=== PATIENT | female | born 1960 | race Caucasian/White ===

== ENCOUNTER 2019-11-26 12:25 | Observation (INO) | payer OTHER ==
[~2019-11-26] VITALS: Ht 162.6 cm; Wt 71.4 kg
[~2019-11-26 12:25] MED LIST: ADVAIR DISK1 IN; AMOXICILLIN500 MG PO; ATORVASTATIN CA10 MG PO; BACTRIM DS1 TAB PO; CIPROFLOXACN500 MG PO; CITALOPRAM20 MG PO; FIORICET PO; LISINOPRIL20 MG PO; LISINOPRIL40 MG OR; LOPRESSOR 550 MG/TAB PO; NAPROSYN500 MG OR; PROAIR HFA IN; SUMATRIPTAN25 MG PO; ULTRAM50 M1 PO
--- NOTE | 2019-11-26 12:25 | NUR ---
PT TO ROOM 10 VIA WC. ABLE TO STAND AND TRANSFER SELF TO STRETCHER WITHOUT ASSIST.
[2019-11-26 12:55] LABS: HEMATOCRIT 48.3 % (37.0-47.0); HEMOGLOBIN 15.4 g/dl (12.0-16.0); IMMATURE GRANULOCYTES 0.6 % (0.0-5.0); MEAN CORPUSCULAR HGB CONC 31.9 g/L CALC (32.0-36.0); NEUT# 7.34 thou/uL (2.00-7.15); RED BLOOD COUNT 5.14 mill/uL (4.20-5.60); RED CELL DISTRI WIDTH 12.9 % (11.5-15.5)
[2019-11-26] MEDS ORDERED: ATORVASTATIN CA10 MG PO (13:05)
[2019-11-26 13:17] LABS: ALBUMIN 4.2 g/dL (3.2-5.0); ALKALINE PHOSPHATASE 122 u/l (38-126); BUN 17 mg/dL (7-17); BUN/CREATININE RATIO 15 (12-20 (CALC)); CARBON DIOXIDE 24 mmol/l (22-30); CHLORIDE 103 mmol/l (95-108); CREATININE 1.1 mg/dL (0.5-1.0); GFR 51 ML/MIN (>=60 (CALC)); GFR FOR AFR.AMER. > 60 ML/MIN (>=60 (CALC)); SGOT/AST 39 u/l (14-36); TOTAL PROTEIN 7.5 g/dL (6.3-8.2)
[2019-11-26 13:19] LABS: ANION GAP 14 (6-22 (CALC)); BILIRUBIN, TOTAL 1.1 mg/dL (0.0-1.4); SODIUM 137 mmol/l (137-146)
--- NOTE | 2019-11-26 14:02 | NUR ---
PREVIOUS FAILED ATTEMPT AT URINE COLLECTION. FLUID BOLUS COMPLETE. PT DENIES URGE TO URINATE AT THIS TIME.
[2019-11-26 15:42] LABS: URINE BILIRUBIN - DIPSTICK NEGATIVE (NEGATIVE); URINE BLOOD DIPSTICK TRACE-LYSED (NEGATIVE); URINE COLOR YELLOW; URINE GLUCOSE - DIPSTICK NEGATIVE (NEGATIVE); URINE KETONE NEGATIVE (NEGATIVE); URINE LEUK ESTERASE NEGATIVE (NEGATIVE); URINE NITRITE - DIPSTICK NEGATIVE (Negative); URINE PROTEIN - DIPSTICK NEGATIVE (NEG-TRACE); URINE UROBILINOGEN - DIPSTICK 0.2 E.U./dL (0.2)
--- NOTE | 2019-11-26 16:52 | NUR ---
FLOOR NURSE NOT AVAILABLE FOR REPORT AT THIS TIME. NURSE WILL CALL THE ER. ER KASEYE NURSEPARVEEN, NOTIFIED.
--- NOTE | 2019-11-26 17:01 | NUR ---
[id number] IN USE
--- NOTE | 2019-11-26 17:30 | NUR ---
Admission Note Report Given to: CRISTINA BRYAN Transported by: X Wheelchair Stretcher Transported with: X Nurse Transporter X Patent IV X O2 X Assessment Expert Location: ICU X [facility]
[2019-11-26 17:40] VITALS: BP 118/73
--- NOTE | 2019-11-26 18:18 | NUR ---
PT ARRIVES TO ROOM 290 ALERT AND ORIENTED X 3. PT HAS CLEAR LUNGS, USING 2 LPM NC. PT DOES BECOME SOB WITH MININAL ACTIVITY. SKIN INTACT. PT ORIENTED TO CALL BOND, BED CONTROLS, STATES THAT SHE WILL CALL IF SHE NEEDS SOMETHING.
--- NOTE | 2019-11-26 19:05 | NUR ---
REPORT RECEIVED FROM CRISTINA BRYAN. PT RESTING IN BED. SAFETY PRECAUTIONS IN PLACE. [facility]
[2019-11-26 20:20] VITALS: BP 113/78
--- NOTE | 2019-11-26 21:07 | NUR ---
PT RESTING IN BED ALERT AND ORIENTED. RESPIRATIONS EVEN AND UNLABORED ON O2 @ 2L VIA NC. LUNGS SOUND DIMINISHED. PEDAL PULSES STRONG. PT STATES "I FEEL LIKE I MIGHT HAVE A HEADACHE COMING ON AND FEELS LIKE THERE IS PRESSURE IN MY RIBS UNDER MY BREAST LIKE INFLAMMATION." MD TO BE NOTIFIED ORDERS TO BE OBTAINED. PT PROVIDED WITH CRANBERRY JUICE AND SPRITE PER REQUEST. CALL BOND WITHIN REACH. WILL CONTINUE TO MONITOR.
--- NOTE | 2019-11-26 23:30 | NUR ---
PT RESTING IN BED, RESPIRATIONS EVEN AND UNLABORED ON O2 @ 2L VIA NC. PT ASKING FOR SOMETHING FOR SLEEP, PT MEDICATED PER EMAR ORDERS. SAFETY PRECAUTIONS IN PLACE. WILL CONTINUE TO [facility].
[2019-11-27] VITALS: BP 122/74
--- NOTE | 2019-11-27 04:28 | NUR ---
PT RESTING IN BED. RESPIRATIONS EVEN AND UNLABORED ON O2 @ 2L VIA NC. SAFETY PRECAUTIONS IN PLACE. WILL CONTINUE TO MONITOR.
[2019-11-27 04:30] VITALS: BP 119/76
[2019-11-27 09:13] VITALS: BP 108/72
[2019-11-27 10:42] VITALS: BP 101/68
[2019-11-27] MEDS ORDERED: ZITHROMAX250 MG PO (12:33)
[2019-11-27] MEDS ORDERED: PREDNISONE10 MG PO (12:33)
--- NOTE | 2019-11-27 14:04 | NUR ---
DISCHARGE INSTRUCTIONS PROVIDED TO PATIENT AND REVIEWED. [facility]S SENT TO [facility] FOR [facility] CRITICAL CARE. DISCUSSED SMOKING CESSATION, AND MANAGING COPD. DARRIUS DENIES HAVING QUESTIONS REGARDING INFORMATION REVIEWED. PATIENT DECLINED ESCORT VIA WHEELCHAIR AT DISCHARGE, PREFERRED TO WALK, AND DRIVING SELF HOME. [place]
== END 2019-11-27 14:03 | disposition home or self-care (01) ==
LOC: ED 12:25 → ED-I 13:43 → MS2 13:58
PROVIDERS: Family Medicine; ADMIT Internal Medicine; ATTEND Internal Medicine
DX: R07.9 Chest pain, unspecified (principal); J44.1 Chronic obstructive pulmonary disease with (acute) exacerbation; I10 Essential (primary) hypertension; F17.200 Nicotine dependence, unspecified, uncomplicated
CPT/HCPCS: G0378

== ENCOUNTER 2020-04-05 11:49 | Emergency (ER) | payer OTHER ==
[~2020-04-05 11:49] MED LIST changes: +PREDNISONE10 MG PO; +ZITHROMAX250 MG PO
[2020-04-05] MEDS ORDERED: CLINDAMYCIN300 M1 PO (12:02)
[2020-04-05] MEDS ORDERED: ONDANSETRON4 MG PO ×2 (12:02)
[2020-04-05] MEDS ORDERED: TRAMADOL HYDROC50 M1 PO ×2 (12:02)
[2020-04-05 12:22] VITALS: BP 131/77
== END 2020-04-05 12:22 | disposition home or self-care (01) ==
LOC: ED 11:49
DX: K03.81 Cracked tooth (principal); I10 Essential (primary) hypertension; J44.9 Chronic obstructive pulmonary disease, unspecified; F17.200 Nicotine dependence, unspecified, uncomplicated

== ENCOUNTER 2020-08-14 10:38 | Observation (INO) | payer OTHER ==
[~2020-08-14] VITALS: Ht 162.6 cm; Wt 75.0 kg
[~2020-08-14 10:38] MED LIST changes: +CLINDAMYCIN300 M1 PO; +ONDANSETRON4 MG PO; +TRAMADOL HYDROC50 M1 PO
[2020-08-14 11:23] LABS: HEMATOCRIT 43.9 % (37.0-47.0); HEMOGLOBIN 14.1 g/dl (12.0-16.0); IMMATURE GRANULOCYTES 0.6 % (0.0-5.0); MEAN CELL VOLUME 92.6 fL CALC (80.0-100.0); MEAN CORPUSCULAR HGB 29.7 pG CALC (26.0-32.0); MEAN CORPUSCULAR HGB CONC 32.1 g/dL CAL (32.0-36.0); NEUT# 11.75 thou/uL (2.00-7.15); RED BLOOD COUNT 4.74 mill/uL (4.20-5.60); RED CELL DISTRI WIDTH 12.7 % (11.5-15.5)
[2020-08-14] MEDS ORDERED: ALENDRONATE10 MG PO (11:32)
[2020-08-14 11:38] LABS: ALBUMIN 4.4 g/dL (3.2-5.0); ALKALINE PHOSPHATASE 105 u/l (38-126); ANION GAP 13 (6-22 (CALC)); BILIRUBIN, TOTAL 0.7 mg/dL (0.0-1.4); BUN 22 mg/dL (8-23); BUN/CREATININE RATIO 24 (12-20 (CALC)); CHLORIDE 100 mmol/l (95-108); CREATININE 0.9 mg/dL (0.5-1.0); GFR > 60 ML/MIN (>=60 (CALC)); GFR FOR AFR.AMER. > 60 ML/MIN (>=60 (CALC)); LIPASE 95 u/l (23-300); SGOT/AST 27 u/l (9-36); SODIUM 138 mmol/l (137-146); TOTAL PROTEIN 7.3 g/dL (6.3-8.2)
[2020-08-14 11:39] LABS: ACT PARTIAL THROMBO TIME 25.9 SECONDS (20.0-32.5); CARBON DIOXIDE 29 mmol/l (22-30); PROTHROMBIN TIME 10.2 SECONDS (9.0-12.5)
[2020-08-14 16:21] VITALS: BP 114/66
== END 2020-08-14 16:24 | disposition left against medical advice (07) ==
LOC: ED 10:38 → ED-I 13:10 → ED 13:19 → MS2 13:20
PROVIDERS: Student in an Organized Health Care Education/Training Program; ADMIT Internal Medicine; ATTEND Internal Medicine
DX: R07.9 Chest pain, unspecified (principal); R06.02 Shortness of breath; R11.2 Nausea with vomiting, unspecified; R42 Dizziness and giddiness; Z53.29 Procedure and treatment not carried out because of patient's decision for other reasons; I10 Essential (primary) hypertension; F17.210 Nicotine dependence, cigarettes, uncomplicated
CPT/HCPCS: G0378

== ENCOUNTER 2020-11-04 22:37 | Emergency (ER) | payer OTHER ==
[~2020-11-04] VITALS: Ht 162.6 cm; Wt 74.0 kg
[~2020-11-04 22:37] MED LIST changes: +ALENDRONATE10 MG PO
[2020-11-04] MEDS ORDERED: LIDOCAINE21 MT (23:04)
[2020-11-04] MEDS ORDERED: ACYCLOVIR (23:13)
[2020-11-04] MEDS ORDERED: VITAMI17 PO (23:16)
[2020-11-04 23:31] LABS: HEMATOCRIT 44.1 % (37.0-47.0); HEMOGLOBIN 13.8 g/dl (12.0-16.0); IMMATURE GRANULOCYTES 0.2 % (0.0-5.0); MEAN CORPUSCULAR HGB 29.1 pG CALC (26.0-32.0); MEAN CORPUSCULAR HGB CONC 31.3 g/dL CAL (32.0-36.0); RED BLOOD COUNT 4.74 mill/uL (4.20-5.60); RED CELL DISTRI WIDTH 12.4 % (11.5-15.5)
[2020-11-04 23:44] LABS: ALBUMIN 4.2 g/dL (3.2-5.0); BILIRUBIN, TOTAL 0.6 mg/dL (0.0-1.4); CREATININE 1.3 mg/dL (0.5-1.0); POTASSIUM 4.2 mmol/l (3.5-5.1); TOTAL PROTEIN 6.9 g/dL (6.3-8.2)
[2020-11-05] MEDS ORDERED: CLINDAMYCIN300 M1 PO (01:55)
[2020-11-05] MEDS ORDERED: ZOFRAN4 MG/TAB PO (01:55)
[2020-11-05 02:24] VITALS: BP 152/87
== END 2020-11-05 02:24 | disposition home or self-care (01) ==
LOC: ED 22:37
PROVIDERS: Emergency Medicine
DX: K04.7 Periapical abscess without sinus (principal); I10 Essential (primary) hypertension; J44.9 Chronic obstructive pulmonary disease, unspecified; E78.5 Hyperlipidemia, unspecified; F17.200 Nicotine dependence, unspecified, uncomplicated

== ENCOUNTER 2021-06-15 01:02 | Emergency (ER) | payer OTHER ==
[~2021-06-15 01:02] MED LIST changes: +ACYCLOVIR; +LIDOCAINE21 MT; +VITAMI17 PO; +ZOFRAN4 MG/TAB PO
[2021-06-15] MEDS ORDERED: OMEPRAZOLE20 MG PO (01:37)
[2021-06-15] MEDS ORDERED: LOSARTAN POTASS25 MG PO (01:37)
[2021-06-15] MEDS ORDERED: VITAMIN D-32000 UNI1 PO (01:37)
[2021-06-15 01:50] LABS: HEMOGLOBIN 13.8 g/dl (12.0-16.0); IMMATURE GRANULOCYTES 0.3 % (0.0-5.0); MEAN CELL VOLUME 91.1 fL CALC (80.0-100.0); MEAN CORPUSCULAR HGB 29.2 pG CALC (26.0-32.0); MEAN CORPUSCULAR HGB CONC 32.1 g/dL CAL (32.0-36.0); NEUT# 11.71 thou/uL (2.00-7.15); RED BLOOD COUNT 4.72 mill/uL (4.20-5.60); RED CELL DISTRI WIDTH 12.6 % (11.5-15.5)
[2021-06-15 02:02] LABS: ALBUMIN 4.2 g/dL (3.2-5.0); ALKALINE PHOSPHATASE 166 u/l (38-126); AMYLASE 53 u/l (30-110); ANION GAP 13 (6-22 (CALC)); BILIRUBIN, TOTAL 0.6 mg/dL (0.0-1.4); BUN 24 mg/dL (8-23); BUN/CREATININE RATIO 26 (12-20 (CALC)); CARBON DIOXIDE 27 mmol/l (22-30); CHLORIDE 101 mmol/l (95-108); CREATININE 0.9 mg/dL (0.5-1.0); GFR > 60 ML/MIN (>=60 (CALC)); GFR FOR AFR.AMER. > 60 ML/MIN (>=60 (CALC)); LIPASE 116 u/l (23-300); POTASSIUM 3.9 mmol/l (3.5-5.1); SGOT/AST 28 u/l (9-36); SODIUM 138 mmol/l (137-146); TOTAL PROTEIN 7.2 g/dL (6.3-8.2)
[2021-06-15 02:15] LABS: MYOGLOBIN 91 ng/mL (0 - 62)
[2021-06-15 02:42] LABS: URINE BILIRUBIN - DIPSTICK NEGATIVE (NEGATIVE); URINE BLOOD DIPSTICK MODERATE (NEGATIVE); URINE COLOR YELLOW; URINE GLUCOSE - DIPSTICK NEGATIVE (NEGATIVE); URINE KETONE NEGATIVE (NEGATIVE); URINE PROTEIN - DIPSTICK NEGATIVE (NEG-TRACE); URINE UROBILINOGEN - DIPSTICK 0.2 E.U./dL (0.2)
[2021-06-15 02:45] LABS: URINE LEUK ESTERASE NEGATIVE (NEGATIVE); URINE NITRITE - DIPSTICK NEGATIVE (Negative)
[2021-06-15 02:53] LABS: URINE BACTERIA MODERATE hpf; URINE EPITHELIAL CELLS FEW EPI/hpf (0-FEW)
[2021-06-15 02:54] LABS: URINE AMORPH SEDIMENT MODERATE hpf (NONE-FEW)
[2021-06-15] MEDS ORDERED: LORTAB 1010 MG PO (03:41)
[2021-06-15] MEDS ORDERED: KEFLEX500 MG PO (03:41)
[2021-06-15] MEDS ORDERED: TAMSULOSIN0.4 MG PO (03:41)
[2021-06-15 04:10] VITALS: BP 139/91
== END 2021-06-15 04:30 | disposition home or self-care (01) ==
LOC: ED 01:02
PROVIDERS: Emergency Medicine
DX: N13.6 Pyonephrosis (principal); I10 Essential (primary) hypertension; J44.9 Chronic obstructive pulmonary disease, unspecified; E78.5 Hyperlipidemia, unspecified; F17.200 Nicotine dependence, unspecified, uncomplicated; B96.4 Proteus (mirabilis) (morganii) as the cause of diseases classified elsewhere; Z20.822 Contact with and (suspected) exposure to COVID-19
CPT/HCPCS: Q9967

== ENCOUNTER 2021-09-21 07:28 | Observation (INO) | payer OTHER ==
[~2021-09-21] VITALS: Ht 162.6 cm; Wt 74.0 kg
[~2021-09-21 07:28] MED LIST changes: +KEFLEX500 MG PO; +LORTAB 1010 MG PO; +LOSARTAN POTASS25 MG PO; +OMEPRAZOLE20 MG PO; +TAMSULOSIN0.4 MG PO; +VITAMIN D-32000 UNI1 PO
[2021-09-21 08:31] LABS: HEMOGLOBIN 14.7 g/dl (12.0-16.0); IMMATURE GRANULOCYTES 0.2 % (0.0-5.0); MEAN CELL VOLUME 89.8 fL CALC (80.0-100.0); MEAN CORPUSCULAR HGB 29.3 pG CALC (26.0-32.0); MEAN CORPUSCULAR HGB CONC 32.7 g/dL CAL (32.0-36.0); NEUT# 11.47 thou/uL (2.00-7.15); RED BLOOD COUNT 5.01 mill/uL (4.20-5.60)
[2021-09-21 08:39] LABS: URINE BILIRUBIN - DIPSTICK NEGATIVE (NEGATIVE); URINE BLOOD DIPSTICK LARGE (NEGATIVE); URINE GLUCOSE - DIPSTICK NEGATIVE (NEGATIVE); URINE KETONE NEGATIVE (NEGATIVE); URINE PH 7.5 (4.5-8.0); URINE PROTEIN - DIPSTICK 100 mg/dL (NEG-TRACE); URINE SPECIFIC GRAVITY 1.025
[2021-09-21 08:41] LABS: URINE COLOR BROWN; URINE LEUK ESTERASE SMALL (NEGATIVE); URINE NITRITE - DIPSTICK NEGATIVE (Negative); URINE RBC 25-50 RBC/hpf (0-5)
[2021-09-21 08:42] LABS: ALBUMIN 4.7 g/dL (3.2-5.0); ALKALINE PHOSPHATASE 163 u/l (38-126); ANION GAP 6 (6-22 (CALC)); BILIRUBIN, TOTAL 0.9 mg/dL (0.0-1.4); BUN 20 mg/dL (8-23); BUN/CREATININE RATIO 26 (12-20 (CALC)); CARBON DIOXIDE 34 mmol/l (22-30); CHLORIDE 102 mmol/l (95-108); CREATININE 0.8 mg/dL (0.5-1.0); GFR > 60 ML/MIN (>=60 (CALC)); GFR FOR AFR.AMER. > 60 ML/MIN (>=60 (CALC)); LIPASE 48 u/l (23-300); POTASSIUM 4.3 mmol/l (3.5-5.1); SGOT/AST 30 u/l (9-36); SODIUM 138 mmol/l (137-146); TOTAL PROTEIN 8.2 g/dL (6.3-8.2); URINE BACTERIA MODERATE hpf; URINE EPITHELIAL CELLS MODERATE EPI/hpf (0-FEW); URINE MUCUS MODERATE hpf (NONE-FEW); URINE WBC 20-50 WBC/hpf (0-5)
[2021-09-21] MEDS ORDERED: ADVAIR DISK1 INH (10:02)
[2021-09-21] MEDS ORDERED: VENLAFAXINE HCL75 M1 PO (10:02)
[2021-09-21] MEDS ORDERED: ALENDRONATE SOD70 MG PO (10:02)
[2021-09-21] MEDS ORDERED: SM ASPIRIN ADUL81 MG PO (10:03)
[2021-09-21] MEDS ORDERED: LOSARTAN POTASS50 MG PO (10:03)
[2021-09-21 13:06] VITALS: BP 120/68
[2021-09-21] MEDS ORDERED: SPIRIVA HANDIHALER IN (13:55)
[2021-09-21 14:56] VITALS: BP 137/89
[2021-09-21 15:00] LABS: URINE BILIRUBIN - DIPSTICK NEGATIVE (NEGATIVE); URINE BLOOD DIPSTICK MODERATE (NEGATIVE); URINE COLOR YELLOW; URINE GLUCOSE - DIPSTICK NEGATIVE (NEGATIVE); URINE KETONE NEGATIVE (NEGATIVE); URINE LEUK ESTERASE NEGATIVE (NEGATIVE); URINE PROTEIN - DIPSTICK TRACE mg/dL (NEG-TRACE); URINE UROBILINOGEN - DIPSTICK 0.2 E.U./dL (0.2)
[2021-09-21 15:10] LABS: URINE NITRITE - DIPSTICK POSITIVE (Negative)
[2021-09-21 15:23] LABS: URINE SQUAMOUS EPITHELIAL CELL FEW EPI/hpf (0-FEW); URINE WBC 50-100 WBC/hpf (0-5)
[2021-09-21 19:00] VITALS: BP 120/77
[2021-09-22 05:48] LABS: HEMATOCRIT 39.3 % (37.0-47.0); HEMOGLOBIN 12.8 g/dl (12.0-16.0); MEAN CELL VOLUME 90.1 fL CALC (80.0-100.0); MEAN CORPUSCULAR HGB 29.4 pG CALC (26.0-32.0); MEAN CORPUSCULAR HGB CONC 32.6 g/dL CAL (32.0-36.0); RED BLOOD COUNT 4.36 mill/uL (4.20-5.60); RED CELL DISTRI WIDTH 13.2 % (11.5-15.5)
[2021-09-22 06:03] LABS: BUN 14 mg/dL (8-23); BUN/CREATININE RATIO 16 (12-20 (CALC)); CHLORIDE 108 mmol/l (95-108); CREATININE 0.9 mg/dL (0.5-1.0); GFR > 60 ML/MIN (>=60 (CALC)); GFR FOR AFR.AMER. > 60 ML/MIN (>=60 (CALC)); SODIUM 140 mmol/l (137-146)
[2021-09-22 06:12] LABS: ANION GAP 8 (6-22 (CALC)); CARBON DIOXIDE 27 mmol/l (22-30); POTASSIUM 3.3 mmol/l (3.5-5.1)
[2021-09-22 07:44] VITALS: BP 120/79
[2021-09-22 11:30] VITALS: BP 123/80
[2021-09-22] MEDS ORDERED: KEFLEX500 MG PO (12:21)
[2021-09-22] MEDS ORDERED: ONDANSETRON4 MG PO (12:22)
== END 2021-09-22 12:52 | disposition home or self-care (01) ==
LOC: ED 07:28 → ED-I 09:30 → ED 09:51 → MS2 09:52
PROVIDERS: Family Medicine; ADMIT Hospitalist; ATTEND Hospitalist
DX: A08.4 Viral intestinal infection, unspecified (principal); N39.0 Urinary tract infection, site not specified; I10 Essential (primary) hypertension; J44.9 Chronic obstructive pulmonary disease, unspecified; E78.5 Hyperlipidemia, unspecified; E55.9 Vitamin D deficiency, unspecified; N28.1 Cyst of kidney, acquired; F32.A Depression, unspecified; K21.9 Gastro-esophageal reflux disease without esophagitis; F17.210 Nicotine dependence, cigarettes, uncomplicated; B96.20 Unspecified Escherichia coli [E. coli] as the cause of diseases classified elsewhere; Z90.49 Acquired absence of other specified parts of digestive tract; Z20.822 Contact with and (suspected) exposure to COVID-19
CPT/HCPCS: G0378; J1650; Q9967

== ENCOUNTER 2021-10-14 23:16 | Observation (INO) | payer OTHER ==
[~2021-10-14] VITALS: Ht 162.6 cm; Wt 75.0 kg
[~2021-10-14 23:16] MED LIST changes: +ADVAIR DISK1 INH; +ALENDRONATE SOD70 MG PO; +LOSARTAN POTASS50 MG PO; +SM ASPIRIN ADUL81 MG PO; +SPIRIVA HANDIHALER IN; +VENLAFAXINE HCL75 M1 PO
[2021-10-14 23:53] LABS: HEMOGLOBIN 14.5 g/dl (12.0-16.0); IMMATURE GRANULOCYTES 0.1 % (0.0-5.0); MEAN CELL VOLUME 92.2 fL CALC (80.0-100.0); MEAN CORPUSCULAR HGB CONC 31.5 g/dL CAL (32.0-36.0); NEUT# 4.77 thou/uL (2.00-7.15); RED CELL DISTRI WIDTH 12.9 % (11.5-15.5)
[2021-10-14 23:54] LABS: HEMATOCRIT 46.1 % (37.0-47.0)
[2021-10-15 00:15] LABS: ALBUMIN 4.3 g/dL (3.2-5.0); ALKALINE PHOSPHATASE 190 u/l (38-126); ANION GAP 12 (6-22 (CALC)); BILIRUBIN, TOTAL 0.6 mg/dL (0.0-1.4); BUN 19 mg/dL (8-23); BUN/CREATININE RATIO 22 (12-20 (CALC)); CHLORIDE 101 mmol/l (95-108); CREATININE 0.8 mg/dL (0.5-1.0); GFR > 60 ML/MIN (>=60 (CALC)); GFR FOR AFR.AMER. > 60 ML/MIN (>=60 (CALC)); POTASSIUM 3.7 mmol/l (3.5-5.1); SGOT/AST 39 u/l (9-36); SODIUM 142 mmol/l (137-146); TOTAL PROTEIN 8.1 g/dL (6.3-8.2)
[2021-10-15 00:18] LABS: CARBON DIOXIDE 33 mmol/l (22-30)
[2021-10-15 00:26] LABS: D-DIMER 0.4 mg/L (0.19-0.60)
[2021-10-15 00:27] LABS: MYOGLOBIN 49 ng/mL (0 - 62)
[2021-10-15 00:31] LABS: ACT PARTIAL THROMBO TIME 25.4 SECONDS (20.0-32.5); INTERNATIONAL NORMALIZED RATIO 0.9 RATIO (0.7-1.3); PROTHROMBIN TIME 9.8 SECONDS (9.0-12.5)
[2021-10-15 04:00] VITALS: BP 124/76
[2021-10-15 07:23] VITALS: BP 133/84
[2021-10-15 10:49] VITALS: BP 132/80
[2021-10-15 15:47] VITALS: BP 142/89
[2021-10-15 20:05] VITALS: BP 142/75
[2021-10-16 00:37] VITALS: BP 144/72
[2021-10-16 04:45] VITALS: BP 133/87
[2021-10-16 05:35] LABS: HEMATOCRIT 42.8 % (37.0-47.0); MEAN CORPUSCULAR HGB 29.1 pG CALC (26.0-32.0); MEAN CORPUSCULAR HGB CONC 32.7 g/dL CAL (32.0-36.0); RED BLOOD COUNT 4.81 mill/uL (4.20-5.60); RED CELL DISTRI WIDTH 12.9 % (11.5-15.5)
[2021-10-16 06:12] LABS: ANION GAP 15 (6-22 (CALC)); BUN 23 mg/dL (8-23); BUN/CREATININE RATIO 33 (12-20 (CALC)); CHLORIDE 102 mmol/l (95-108); CREATININE 0.7 mg/dL (0.5-1.0); GFR > 60 ML/MIN (>=60 (CALC)); GFR FOR AFR.AMER. > 60 ML/MIN (>=60 (CALC)); MAGNESIUM 1.9 mg/dL (1.6-2.3); POTASSIUM 4.1 mmol/l (3.5-5.1); SODIUM 139 mmol/l (137-146)
[2021-10-16 06:13] LABS: CARBON DIOXIDE 26 mmol/l (22-30)
[2021-10-16 07:55] VITALS: BP 147/89
[2021-10-16 09:24] VITALS: BP 147/89
[2021-10-16] MEDS ORDERED: PREDNISONE10 MG PO (11:58)
[2021-10-16] MEDS ORDERED: IPRATROPIU0.5 MG/3 M IN (12:00)
[2021-10-16] MEDS ORDERED: ZPAK PO (12:08)
== END 2021-10-16 12:52 | disposition home or self-care (01) ==
LOC: ED 23:16 → ED-I 10-15 00:37 → ED 10-15 01:01 → MS2 10-15 01:02
PROVIDERS: Hospitalist; ADMIT Family Medicine; ATTEND Family Medicine
DX: J44.1 Chronic obstructive pulmonary disease with (acute) exacerbation (principal); R51.9 Headache, unspecified; I10 Essential (primary) hypertension; E78.5 Hyperlipidemia, unspecified; F17.200 Nicotine dependence, unspecified, uncomplicated; Z20.822 Contact with and (suspected) exposure to COVID-19
CPT/HCPCS: G0378; J1650

== ENCOUNTER 2022-06-14 20:01 | Emergency (ER) | payer OTHER ==
[~2022-06-14] VITALS: Ht 162.6 cm; Wt 77.2 kg
[2022-06-14] VITALS (7 sets, daily range): BP systolic 108–131; BP diastolic 71–81
[~2022-06-14 20:01] MED LIST changes: +IMITREX100 M1 PO; +IPRATROPIU0.5 MG/3 M IN; +KAPSPARGO SPRIN25 MG; +ZPAK PO
[2022-06-14 20:47] LABS: HEMATOCRIT 43.1 % (37.0-47.0); HEMOGLOBIN 14.2 g/dl (12.0-16.0); IMMATURE GRANULOCYTES 0.3 % (0.0-5.0); MEAN CELL VOLUME 89.4 fL CALC (80.0-100.0); MEAN CORPUSCULAR HGB 29.5 pG CALC (26.0-32.0); MEAN CORPUSCULAR HGB CONC 32.9 g/dL CAL (32.0-36.0); NEUT# 12.8 thou/uL (2.00-7.15); RED BLOOD COUNT 4.82 mill/uL (4.20-5.60); RED CELL DISTRI WIDTH 13.3 % (11.5-15.5)
[2022-06-14 21:04] LABS: ALBUMIN 3.5 g/dL (3.2-5.0); ALKALINE PHOSPHATASE 119 u/l (38-126); AMYLASE 60 u/l (30-110); ANION GAP 9 (6-22 (CALC)); BUN 27 mg/dL (8-23); BUN/CREATININE RATIO 37 (12-20 (CALC)); CARBON DIOXIDE 29 mmol/l (22-30); CHLORIDE 104 mmol/l (95-108); CREATININE 0.7 mg/dL (0.5-1.0); GFR FOR AFR.AMER. > 60 ML/MIN (>=60 (CALC)); GFR OTHER RACES > 60 ML/MIN (>=60 (CALC)); LIPASE 101 u/l (23-300); POTASSIUM 3.9 mmol/l (3.5-5.1); SGOT/AST 17 u/l (9-36); SODIUM 139 mmol/l (137-146)
[2022-06-14 21:16] LABS: MYOGLOBIN 47 ng/mL (0 - 62)
[2022-06-14 21:37] LABS: URINE BILIRUBIN - DIPSTICK NEGATIVE (NEGATIVE); URINE BLOOD DIPSTICK SMALL (NEGATIVE); URINE COLOR YELLOW; URINE GLUCOSE - DIPSTICK NEGATIVE (NEGATIVE); URINE KETONE NEGATIVE (NEGATIVE); URINE LEUK ESTERASE NEGATIVE (NEGATIVE); URINE PROTEIN - DIPSTICK NEGATIVE (NEG-TRACE); URINE SPECIFIC GRAVITY >=1.030; URINE UROBILINOGEN - DIPSTICK 0.2 E.U./dL (0.2)
[2022-06-14 21:41] LABS: URINE NITRITE - DIPSTICK NEGATIVE (Negative)
[2022-06-14 21:55] LABS: URINE SQUAMOUS EPITHELIAL CELL FEW EPI/hpf (0-FEW); URINE WBC 0-2 WBC/hpf (0-5)
[2022-06-14] MEDS ORDERED: LOMOTIL2.5 MG PO (23:31)
[2022-06-14] MEDS ORDERED: CIPROFLOXACN500 MG PO (23:31)
[2022-06-15] VITALS: BP 107/71
[2022-06-15 00:30] VITALS: BP 114/81
[2022-06-15 01:00] VITALS: BP 118/84
[2022-06-15 01:21] VITALS: BP 118/84
== END 2022-06-15 01:23 | disposition home or self-care (01) ==
LOC: ED 20:01
PROVIDERS: Emergency Medicine
DX: K52.9 Noninfective gastroenteritis and colitis, unspecified (principal); I10 Essential (primary) hypertension; J44.9 Chronic obstructive pulmonary disease, unspecified; E78.5 Hyperlipidemia, unspecified; E55.9 Vitamin D deficiency, unspecified; F17.200 Nicotine dependence, unspecified, uncomplicated; Z20.822 Contact with and (suspected) exposure to COVID-19
CPT/HCPCS: Q9967

== ENCOUNTER 2022-06-28 08:21 | Day surgery (SDC) | payer OTHER ==
[~2022-06-28] VITALS: Ht 162.6 cm; Wt 77.1 kg
[~2022-06-28 08:21] MED LIST changes: +LOMOTIL2.5 MG PO; +NICOTINE T7 MG/24 HR TD
[2022-06-28 09:53] VITALS: BP 123/80
== END 2022-06-28 10:27 | disposition home or self-care (01) ==
LOC: ENDO 08:21 → ORM 08:45 → ENDO 08:45
PROVIDERS: ATTEND Surgery
DX: Z12.11 Encounter for screening for malignant neoplasm of colon (principal); K63.5 Polyp of colon; K44.9 Diaphragmatic hernia without obstruction or gangrene; K21.9 Gastro-esophageal reflux disease without esophagitis; I10 Essential (primary) hypertension; J44.9 Chronic obstructive pulmonary disease, unspecified

== ENCOUNTER 2023-12-01 16:47 | Emergency (ER) | payer OTHER ==
[2023-12-01] VITALS (8 sets, daily range): BP systolic 109–154; BP diastolic 71–97
[~2023-12-01] VITALS: Ht 162.6 cm; Wt 76.2 kg
[2023-12-01 17:37] LABS: BASO% 0.2 % (0-3); EOS% 0.6 % (0-8); HEMATOCRIT 48.1 % (37.0-47.0); HEMOGLOBIN 15.6 g/dl (12.0-16.0); IMMATURE GRANULOCYTES 1.4 % (0.0-5.0); LYMPH% 20.3 % (15-41); MEAN CELL VOLUME 90.2 fL CALC (80.0-100.0); MEAN CORPUSCULAR HGB 29.3 pG CALC (26.0-32.0); MEAN CORPUSCULAR HGB CONC 32.4 g/dL CAL (32.0-36.0); MONO% 7.7 % (2-13); NEUT# 9.82 thou/uL (2.00-7.15); NEUT% 69.8 % (42-76); RED BLOOD COUNT 5.33 mill/uL (4.20-5.60); RED CELL DISTRI WIDTH 12.4 % (11.5-15.5)
[2023-12-01] MEDS ORDERED: VENTOLIN HFA108 MCG PO (17:48)
[2023-12-01] MEDS ORDERED: DOXY-CAPS100 MG PO (17:48)
[2023-12-01] MEDS ORDERED: PREDNISONE50 MG PO (17:48)
[2023-12-01 17:50] LABS: ALKALINE PHOSPHATASE 150 u/l (38-126); ANION GAP 13 (6-22 (CALC)); BUN 23 mg/dL (8-23); BUN/CREATININE RATIO 30 (12-20 (CALC)); CARBON DIOXIDE 27 mmol/l (22-30); CHLORIDE 105 mmol/l (95-108); CREATININE 0.7 mg/dL (0.5-1.0); GFR FOR AFR.AMER. > 60 ML/MIN (>=60 (CALC)); GFR OTHER RACES > 60 ML/MIN (>=60 (CALC)); POTASSIUM 3.7 mmol/l (3.5-5.1); SODIUM 141 mmol/l (137-146); TOTAL PROTEIN 7.1 g/dL (6.3-8.2)
[2023-12-01 17:54] LABS: ALBUMIN 4.3 g/dL (3.2-5.0); BILIRUBIN, TOTAL 0.5 mg/dL (0.02-1.3); SGOT/AST 36 u/l (9-36)
== END 2023-12-01 18:46 | disposition home or self-care (01) ==
LOC: ED 16:47
PROVIDERS: Family Medicine
DX: J44.1 Chronic obstructive pulmonary disease with (acute) exacerbation (principal); I10 Essential (primary) hypertension; F17.210 Nicotine dependence, cigarettes, uncomplicated; Z20.822 Contact with and (suspected) exposure to COVID-19

== ENCOUNTER 2024-10-01 14:56 | Observation (INO) | payer MEDICARE ==
[~2024-10-01] VITALS: Ht 162.6 cm; Wt 77.0 kg
[2024-10-01] VITALS (7 sets, daily range): BP systolic 133–162; BP diastolic 89–99
[~2024-10-01 14:56] MED LIST changes: +BENZONATATE200 MG PO; +DOXY-CAPS100 MG PO; +LEVOCETIRIZINE D5 MG PO; +PREDNISONE50 MG PO; +VENTOLIN HFA108 MCG PO
[2024-10-01] MEDS ORDERED: ASPIRIN 81 MG/TAB PO ONE (15:00)
[2024-10-01 15:22] LABS: BASO% 0.6 % (0-3); EOS% 4.4 % (0-8); HEMATOCRIT 47.5 % (37.0-47.0); HEMOGLOBIN 15.5 g/dl (12.0-16.0); IMMATURE GRANULOCYTES 0.2 % (0.0-5.0); LYMPH% 29.4 % (15-41); MEAN CELL VOLUME 92.1 fL CALC (80.0-100.0); MEAN CORPUSCULAR HGB CONC 32.6 g/dL CAL (32.0-36.0); MONO% 8.5 % (2-13); NEUT# 4.68 thou/uL (2.00-7.15); NEUT% 56.9 % (42-76); RED BLOOD COUNT 5.16 mill/uL (4.20-5.60); RED CELL DISTRI WIDTH 12.7 % (11.5-15.5)
[2024-10-01 15:35] LABS: ALBUMIN 4.7 g/dL (3.2-5.0); ALKALINE PHOSPHATASE 160 u/l (38-126); ANION GAP 15 (6-22 (CALC)); BILIRUBIN, TOTAL 0.6 mg/dL (0.02-1.3); BUN 18 mg/dL (8-23); BUN/CREATININE RATIO 18 (12-20 (CALC)); CARBON DIOXIDE 27 mmol/l (22-30); CHLORIDE 104 mmol/l (95-108); ESTIMATED GFR 63 ML/MIN (>=90 (CALC)); POTASSIUM 3.9 mmol/l (3.5-5.1); SGOT/AST 36 u/l (9-36); SODIUM 142 mmol/l (137-146); TOTAL PROTEIN 7.7 g/dL (6.3-8.2)
[2024-10-01] MEDS ORDERED: Zaleplon 5 MG/CAP PO PRN (18:15)
[2024-10-01] MEDS ORDERED: MAGNESIUM HYDROXIDE 30 ML UDC PO PRN (18:15)
[2024-10-01] MEDS ORDERED: ACETAMINOPHEN 325 MG/TAB PO PRN (18:15)
[2024-10-01] MEDS ORDERED: ENOXAPARIN SODIUM 40 MG/0.4 ML SYR SC SCH (21:00)
[2024-10-02] MEDS ORDERED: VENLAFAXINE HYDROCHLORIDE 75 MG/CAP PO SCH (09:00)
[2024-10-02] MEDS ORDERED: PANTOPRAZOLE SODIUM Sesquihydr 40 MG/TAB PO SCH (09:00)
[2024-10-02] MEDS ORDERED: ASPIRIN EC 81 MG/TAB PO SCH (09:00)
[2024-10-02] MEDS ORDERED: ATORVASTATIN CALCIUM 10 MG/TAB PO SCH (09:00)
[2024-10-02] MEDS ORDERED: LOSARTAN Potassium 50 MG/TAB PO SCH (09:00)
== END 2024-10-01 21:01 | disposition left against medical advice (07) ==
LOC: ED 14:56 → ED-I 17:50 → ED 18:04 → MS2 18:05
PROVIDERS: Family Medicine; ADMIT Internal Medicine; ATTEND Internal Medicine
DX: R07.9 Chest pain, unspecified (principal); I10 Essential (primary) hypertension; J44.9 Chronic obstructive pulmonary disease, unspecified; E78.5 Hyperlipidemia, unspecified; F17.200 Nicotine dependence, unspecified, uncomplicated